=== PATIENT | female | born 1955 | race Caucasian/White ===

== ENCOUNTER 2021-07-23 11:32 | Emergency (ER) | payer MEDICARE, OTHER ==
[~2021-07-23] VITALS: Ht 162.6 cm; Wt 77.3 kg
[2021-07-23 15:30] LABS: BASOPHILS # (AUTO) 0.1 X10'3 (0-0.2); BASOPHILS % (AUTO) 1.5 % (0-1); EOSINOPHILS # (AUTO) 0.3 X10'3 (0-0.9); EOSINOPHILS % (AUTO) 4.2 % (0-6); HEMATOCRIT 42.3 % (35.0-45.0); HEMOGLOBIN 14.3 g/dl (12.0-16.0); LYMPHOCYTES # (AUTO) 1.9 X10'3 (1.1-4.8); LYMPHOCYTES % (AUTO) 31.7 % (21-51); MEAN CORPUSCULAR HEMOGLOBIN 30.9 PG (27.0-31.0); MEAN CORPUSCULAR HGB CONC 33.9 g/dL (33.0-36.5); MEAN CORPUSCULAR VOLUME 91.3 FL (78-98); MEAN PLATELET VOLUME 7.5 FL (7.4-10.4); MONOCYTES # (AUTO) 0.7 X10'3 (0-0.9); MONOCYTES % (AUTO) 11.9 % (2-12); NEUTROPHILS # (AUTO) 3.1 X10'3 (1.8-7.7); NEUTROPHILS % (AUTO) 50.7 % (42-75); PLATELET COUNT 320 X10'3 (140-440); RED BLOOD COUNT 4.63 X10'6 (4.20-5.60); RED CELL DISTRIBUTION WIDTH 12.9 % (11.5-14.5)
[2021-07-23 15:43] LABS: ALANINE AMINOTRANSFERASE 42 U/L (12-78); ALBUMIN 3.6 G/DL (3.4-5.0); ALKALINE PHOSPHATASE 43 IU/L (46-116); ANION GAP 10 (8-16); ASPARTATE AMINO TRANSFERASE 24 U/L (10-37); BILIRUBIN,TOTAL 0.4 MG/DL (0.1-1.0); BLOOD UREA NITROGEN 22 MG/DL (7-18); BUN/CREATININE RATIO 23.4 (6.6-38.0); CALCIUM 8.9 MG/DL (8.5-10.1); CHLORIDE 107 MMOL/L (99-107); CREATININE 0.94 MG/DL (0.40-0.90); GLUCOSE 89 MG/DL (70-104); POTASSIUM 3.3 MMOL/L (3.5-5.1); SODIUM 145 MMOL/L (135-145); TOTAL PROTEIN 7.3 G/DL (6.4-8.2); eGFR 59 ML/MIN
[2021-07-23] MEDS ORDERED: iohexol 350MG/ML 100ml bottle IV ONE (15:46)
[2021-07-23 17:50] LABS: PARTIAL THROMBOPLASTIN TIME 27 SECONDS (22-32)
[2021-07-23] MEDS ORDERED: enoxaparin 100mg/ml syringe SUBCUT ONE (17:50)
[2021-07-23] MEDS ORDERED: enoxaparin 80mg/0.8ml syringe SUBCUT ONE (17:55)
[2021-07-23] MEDS ORDERED: APIX5TAB3 PO ×2 (18:04)
[2021-07-23 18:07] VITALS: BP 135/67
== END 2021-07-23 18:17 | disposition home or self-care (01) ==
LOC: ER 11:33
DX: I82.442 Acute embolism and thrombosis of left tibial vein (principal); F17.200 Nicotine dependence, unspecified, uncomplicated; Z88.2 Allergy status to sulfonamides; Z79.899 Other long term (current) drug therapy
CPT/HCPCS: 36415; 71275; 80053; 85025; 85610; 85730; 93971; 96372; 99285; Q9967; J1650

== ENCOUNTER 2022-07-03 15:35 | Emergency (ER) | payer MEDICARE, OTHER ==
[~2022-07-03] VITALS: Ht 162.6 cm; Wt 78.2 kg
[~2022-07-03 15:35] MED LIST: APIX5TAB3 PO
[2022-07-03 18:16] LABS: APTT 47 SECONDS (22-32)
[2022-07-03 18:19] LABS: ALANINE AMINOTRANSFERASE 32 U/L (12-78); ALBUMIN 3.6 G/DL (3.4-5.0); ALBUMIN/GLOBULIN RATIO 1.1 (1.1-1.5); ALKALINE PHOSPHATASE 35 IU/L (46-116); ANION GAP 10 (8-16); ASPARTATE AMINO TRANSFERASE 25 U/L (10-37); BILIRUBIN,TOTAL 0.2 MG/DL (0.1-1.0); BLOOD UREA NITROGEN 27 MG/DL (7-18); BUN/CREATININE RATIO 27.8 (6.6-38.0); CALCIUM 8.7 MG/DL (8.5-10.1); CHLORIDE 103 MMOL/L (99-107); CREATININE 0.97 MG/DL (0.40-0.90); GLUCOSE 91 MG/DL (70-104); POTASSIUM 3.5 MMOL/L (3.5-5.1); SODIUM 139 MMOL/L (135-145); TOTAL CARBON DIOXIDE 26.3 MMOL/L (24-32); eGFR 57 ML/MIN
[2022-07-03 18:25] LABS: BASOPHILS # (AUTO) 0.1 X10'3 (0-0.2); BASOPHILS % (AUTO) 1.3 % (0-1); EOSINOPHILS # (AUTO) 0.2 X10'3 (0-0.9); EOSINOPHILS % (AUTO) 2.5 % (0-6); HEMATOCRIT 40.9 % (35.0-45.0); HEMOGLOBIN 13.7 g/dl (12.0-16.0); LYMPHOCYTES # (AUTO) 2.2 X10'3 (1.1-4.8); LYMPHOCYTES % (AUTO) 32.7 % (21-51); MEAN CORPUSCULAR HEMOGLOBIN 30.2 PG (27.0-31.0); MEAN CORPUSCULAR HGB CONC 33.6 g/dL (33.0-36.5); MEAN CORPUSCULAR VOLUME 89.9 FL (78-98); MEAN PLATELET VOLUME 7.6 FL (7.4-10.4); MONOCYTES # (AUTO) 0.7 X10'3 (0-0.9); MONOCYTES % (AUTO) 10.3 % (2-12); NEUTROPHILS # (AUTO) 3.5 X10'3 (1.8-7.7); NEUTROPHILS % (AUTO) 53.2 % (42-75); PLATELET COUNT 326 X10'3 (140-440); RED BLOOD COUNT 4.55 X10'6 (4.20-5.60); RED CELL DISTRIBUTION WIDTH 13.8 % (11.5-14.5); WHITE BLOOD COUNT 6.7 X10'3 (4.5-11.0)
[2022-07-03 19:41] VITALS: BP 128/78
== END 2022-07-03 19:42 | disposition home or self-care (01) ==
LOC: ER 15:36
DX: I82.402 Acute embolism and thrombosis of unspecified deep veins of left lower extremity (principal); Z88.2 Allergy status to sulfonamides
CPT/HCPCS: 36415; 80053; 85025; 85610; 85730; 93971; 99284

== ENCOUNTER 2022-10-05 08:12 | Day surgery (SDC) | payer MEDICARE, OTHER ==
[2022-09-28 10:00] LABS: BASOPHILS # (AUTO) 0.1 X10'3 (0-0.2); BASOPHILS % (AUTO) 1.2 % (0-1); EOSINOPHILS # (AUTO) 0.2 X10'3 (0-0.9); EOSINOPHILS % (AUTO) 2.7 % (0-6); HEMATOCRIT 43.2 % (35.0-45.0); HEMOGLOBIN 14.7 g/dl (12.0-16.0); LYMPHOCYTES # (AUTO) 2.3 X10'3 (1.1-4.8); LYMPHOCYTES % (AUTO) 33.6 % (21-51); MEAN CORPUSCULAR HEMOGLOBIN 30.9 PG (27.0-31.0); MEAN CORPUSCULAR HGB CONC 33.9 g/dL (33.0-36.5); MEAN CORPUSCULAR VOLUME 91.1 FL (78-98); MEAN PLATELET VOLUME 7.2 FL (7.4-10.4); MONOCYTES # (AUTO) 0.8 X10'3 (0-0.9); MONOCYTES % (AUTO) 11.1 % (2-12); NEUTROPHILS # (AUTO) 3.5 X10'3 (1.8-7.7); NEUTROPHILS % (AUTO) 51.4 % (42-75); PLATELET COUNT 359 X10'3 (140-440); RED BLOOD COUNT 4.75 X10'6 (4.20-5.60); RED CELL DISTRIBUTION WIDTH 14.6 % (11.5-14.5); WHITE BLOOD COUNT 6.8 X10'3 (4.5-11.0)
[2022-09-28 10:11] LABS: APTT 48 SECONDS (22-32)
[2022-09-28 10:21] LABS: ALANINE AMINOTRANSFERASE 41 U/L (12-78); ALBUMIN 3.8 G/DL (3.4-5.0); ALKALINE PHOSPHATASE 43 IU/L (46-116); ANION GAP 8 (8-16); ASPARTATE AMINO TRANSFERASE 33 U/L (10-37); BILIRUBIN,TOTAL 0.3 MG/DL (0.1-1.0); BLOOD UREA NITROGEN 19 MG/DL (7-18); BUN/CREATININE RATIO 21.8 (6.6-38.0); CALCIUM 9.1 MG/DL (8.5-10.1); CHLORIDE 103 MMOL/L (99-107); CREATININE 0.87 MG/DL (0.40-0.90); GLUCOSE 96 MG/DL (70-104); POTASSIUM 3.7 MMOL/L (3.5-5.1); SODIUM 141 MMOL/L (135-145); TOTAL CARBON DIOXIDE 30.3 MMOL/L (24-32); TOTAL PROTEIN 7.6 G/DL (6.4-8.2); eGFR 65 ML/MIN
[2022-10-05] VITALS (12 sets, daily range): BP systolic 104–146; BP diastolic 58–87
[~2022-10-05] VITALS: Ht 163.8 cm; Wt 80.1 kg
[2022-10-05] MEDS ORDERED: DULO60CA65 PO (08:42)
[2022-10-05] MEDS ORDERED: LOSA1TAB36 PO (08:42)
[2022-10-05] MEDS ORDERED: LEVO88TA7 PO (08:42)
[2022-10-05] MEDS ORDERED: FENO134C21 PO (08:42)
[2022-10-05] MEDS ORDERED: SIMV-42 PO (08:42)
[2022-10-05] MEDS ORDERED: BUPR-317 PO (08:42)
[2022-10-05] MEDS ORDERED: WARF-55 PO (08:42)
[2022-10-05] MEDS ORDERED: CLON0.5T4 PO (08:42)
[2022-10-05] MEDS ORDERED: ESZO3TAB44 PO (08:42)
[2022-10-05] MEDS ORDERED: ESTR0.5T28 PO (08:42)
[2022-10-05] MEDS ORDERED: diphenhydrAMINE 25mg capsule PO PRN (08:50)
[2022-10-05] MEDS ORDERED: LORazepam 0.5 MG tablet PO PRN (08:50)
[2022-10-05] MEDS ORDERED: methylPREDNISolone sod succ 125mg/2ml vial IV ONE (08:50)
[2022-10-05] MEDS ORDERED: normal saline 1,000 ML IV SCH (08:50)
[2022-10-05] MEDS ORDERED: midazolam 1 mg/ML 2ml injection ONE ×2 (09:43→10:43)
[2022-10-05] MEDS ORDERED: fentaNYL/PF 50MCG/1 ML 2ML syringe ONE (09:43)
[2022-10-05] MEDS ORDERED: LIDOcaine 1% 30ml preserv. free vial ONE (09:43)
[2022-10-05] MEDS ORDERED: iohexol 350MG/ML 100ml bottle IV ONE (09:43)
[2022-10-05] MEDS ORDERED: iohexol 350 MG/ML 50ML vial IV ONE (10:25)
[2022-10-05] MEDS ORDERED: ondansetron/PF 4mg/2ml inj IV PRN (11:35)
[2022-10-05] MEDS ORDERED: normal saline 1000ml 1,000 ML IV SCH (11:35)
[2022-10-05] MEDS ORDERED: OXAZEpam 15mg capsule PO PRN (11:50)
[2022-10-05] MEDS ORDERED: HYDROcodone/acetaminophen 10/325mg tab PO PRN (11:50)
[2022-10-05] MEDS ORDERED: HYDROcodone/acetaminophen 5mg/325mg tablet PO PRN (11:50)
[2022-10-05] MEDS ORDERED: proCHLORperazine 10 MG/2 ml inj IV PRN (11:50)
[2022-10-05] MEDS ORDERED: nitroGLYCERIN 0.4mg SUBLingual tab SL PRN (11:50)
--- NOTE | 2022-10-05 11:50 | NUR ---
Hair called to update on Pt condition. Will be up to see her soon
== END 2022-10-05 18:00 | disposition home or self-care (01) ==
LOC: SSTAY O 08:12
PROVIDERS: ATTEND Internal Medicine Cardiovascular Disease
DX: I25.10 Atherosclerotic heart disease of native coronary artery without angina pectoris (principal); I10 Essential (primary) hypertension; E78.5 Hyperlipidemia, unspecified; F32.A Depression, unspecified; I44.0 Atrioventricular block, first degree; Z96.652 Presence of left artificial knee joint; Z88.2 Allergy status to sulfonamides; Z88.6 Allergy status to analgesic agent; Z79.899 Other long term (current) drug therapy; Z79.01 Long term (current) use of anticoagulants
CPT/HCPCS: 36415; 71046; 80053; 85025; 85610; 85730; 93005; 93458; 99152; 99153; C1751; C1760; C1769; J1644; J2250; J2930; J3010; J3490; J7030; Q0163; Q9967; A4615; A4620; A6258

== ENCOUNTER 2023-01-17 05:53 | Inpatient (IN) | payer MEDICARE, OTHER ==
[2023-01-10 14:48] LABS: BASOPHILS % (AUTO) 0.4 % (0-1); EOSINOPHILS # (AUTO) 0.2 X10'3 (0-0.9); EOSINOPHILS % (AUTO) 3.4 % (0-6); LYMPHOCYTES # (AUTO) 1.7 X10'3 (1.1-4.8); LYMPHOCYTES % (AUTO) 25.7 % (21-51); MEAN CORPUSCULAR HEMOGLOBIN 30.9 PG (27.0-31.0); MEAN PLATELET VOLUME 6.8 FL (7.4-10.4); MONOCYTES # (AUTO) 0.7 X10'3 (0-0.9); MONOCYTES % (AUTO) 10.4 % (2-12); NEUTROPHILS # (AUTO) 3.9 X10'3 (1.8-7.7); NEUTROPHILS % (AUTO) 60.1 % (42-75); PRE OP HEMATOCRIT 42.1 % (35.0-45.0); PRE OP HEMOGLOBIN 14.3 g/dL (12.0-16.0); PRE OP PLATELET COUNT 388 X10'3 (140-440); RED BLOOD COUNT 4.63 X10'6 (4.20-5.60); RED CELL DISTRIBUTION WIDTH 13.3 % (11.5-14.5)
[2023-01-10 15:00] LABS: ALBUMIN 3.6 G/DL (3.4-5.0); ALKALINE PHOSPHATASE 44 IU/L (46-116); BLOOD UREA NITROGEN 19 MG/DL (7-18); BUN/CREATININE RATIO 22.4 (6.6-38.0); CALCIUM 9.5 MG/DL (8.5-10.1); CHLORIDE 107 MMOL/L (99-107); CREATININE 0.85 MG/DL (0.40-0.90); PRE OP ALT 37 U/L (30-65); PRE OP ANION GAP 5 (8-16); PRE OP AST 27 U/L (10-37); PRE OP BILIRUB, TOTAL 0.2 MG/DL (0.0-1.0); PRE OP GLUCOSE 96 MG/DL (70-104); PRE OP POTASSIUM 3.5 MMOL/L (3.4-5.1); PRE OP SODIUM 142 MMOL/L (135-145); TOTAL CARBON DIOXIDE 30.4 MMOL/L (24-32); TOTAL PROTEIN 7.3 G/DL (6.4-8.2); eGFR 66 ML/MIN
[2023-01-17] VITALS (19 sets, daily range): BP systolic 93–133; BP diastolic 47–89
[~2023-01-17] VITALS: Ht 163.8 cm; Wt 77.1 kg
[~2023-01-17 05:53] MED LIST changes: -APIX5TAB3 PO; +BUPR-353 PO; +CLON0.5T4 PO; +DULO60CA65 PO; +ESZO3TAB44 PO; +FENO134C21 PO; +LEVO88TA7 PO; +LOSA1TAB36 PO; +SIMV-42 PO; +WARF-55 PO; +acetaminophen 325mg tablet PO ONE; +ceFAZolin inj. 2,000 MG in dextrose 5%-water 100 ML IV ONE; +celeCOXIB 100mg capsule PO ONE; +famotidine 20mg tablet PO ONE; +gabapentin 300mg capsule PO ONE; +metoclopramide 5 mg/ml inj IV ONE; +oxyCODONE SR 10mg (sust. release) tab -2 tabs (20mg) PO ONE; +tranexamic acid inj. 1,000 MG in normal saline IV soln 100ML IV ONE; +vancomycin 1,500 MG in NS 300ml IV soln IV ONE
[2023-01-17] MEDS ORDERED: clonazePAM 0.5mg tablet PO PRN (06:45)
[2023-01-17] MEDS ORDERED: ondansetron/PF 4mg/2ml inj IV PRN ×2 (06:50→10:00)
[2023-01-17] MEDS ORDERED: acetaminophen 325mg tablet PO PRN (06:50)
[2023-01-17] MEDS ORDERED: naloxone 0.4 mg/ml inj IV PRN (06:50)
[2023-01-17] MEDS ORDERED: HYDROmorphone 1 mg/ml syringe IV PRN (06:50)
[2023-01-17] MEDS ORDERED: HYDROmorphone inj. 0.5 MG/0.5 ML DISP.SYRIN IV PRN (06:50)
[2023-01-17] MEDS ORDERED: diphenhydrAMINE 25mg capsule PO PRN ×2 (06:50)
[2023-01-17] MEDS ORDERED: bisacodyl 10mg suppository rectal RC PRN (06:50)
[2023-01-17] MEDS: potassium cl 20mEq in 1/2 NS 1,000 ML IV SCH ×3 (06:50→22:50)
[2023-01-17] MEDS ORDERED: magnesium hydroxide 30ml (MOM) UD suspension PO PRN (06:50)
[2023-01-17] MEDS: ringers solution, lacted 1,000 ML IV SCH ×2 (06:59→14:07)
--- NOTE | 2023-01-17 07:12 | NUR ---
PULSES MARKED, CSM INTACT, VIDEO WATCHED, OINTMENT NOT ORDERED
[2023-01-17] MEDS ORDERED: non-formulary drug (Losartan/Hydrochlorothiazide (Losartan-Hctz 50-12.5 Mg Tab) 1 TAB) PO SCH (08:00)
[2023-01-17] MEDS ORDERED: ROPIVAcaine inj 250 MG, CloNIDine/PF inj 80 MCG, epiNEPHrine inj 0.5 MG in normal salin... IV STA (08:03)
[2023-01-17] MEDS ORDERED: vancomycin 1,000mg inj ONE (08:46)
[2023-01-17] MEDS ORDERED: MIDAZolam 1mg/ml 10ml vial ONE (09:15)
[2023-01-17] MEDS ORDERED: fentaNYL/PF 50MCG/1 ML 2ML syringe ONE (09:16)
[2023-01-17] MEDS ORDERED: ROPIVAcaine 0.5% (5mg/ml) 30ml vial ONE (09:53)
[2023-01-17] MEDS ORDERED: hydrALAZINE 20mg/ml inj. IV PRN (10:00)
[2023-01-17] MEDS ORDERED: ringers solution, lacted 1,000 ML IV SCH (10:00)
[2023-01-17] MEDS ORDERED: ROPIVAcaine 0.2% (10 MG/5 ML) BOLUS INJECTION ADDCANAL PRN (10:00)
[2023-01-17] MEDS ORDERED: labetalol 20mg/4ml (5mg/ml) syringe IV PRN (10:00)
[2023-01-17] MEDS ORDERED: morphine 4 MG/ML inj SYRINge IV PRN (10:00)
[2023-01-17] MEDS ORDERED: morphine 2 MG/ML inj. syringe IV PRN (10:00)
[2023-01-17] MEDS ORDERED: fentaNYL/PF 50MCG/1 ML 2ML syringe IV PRN ×2 (10:00)
[2023-01-17] MEDS ORDERED: ePHEDrine 50MG/ML INJ. ONE (10:11)
--- NOTE | 2023-01-17 11:00 | NUR ---
Received from OR via , accompanied by Anesthesiologist EIL AND OR NURSE and report given by Anesthesiolgist. PT IS AWAKE AND ALERT UPON ARRIVAL TO PACU AND DENIES PAIN OR DISCOMFORT. O2 WITHIN NORMAL LIMITS ON ROOM AIR. VSS. LT TOTAL KNEE WITH NI DRESSING AND ONQ CATH WITH PWDR PACK SLING; CDI. Addendum: 01/17/23 at 1141 by Andreina Kramer RN Amended: Links added.
[2023-01-17] MEDS ORDERED: meperidine/PF 25mg/ml syringe IV PRN (11:20)
[2023-01-17] MEDS: ROPIVAcaine 0.2%/PF PUMP/bolus 545 ML ADDCANAL SCH (11:39)
--- NOTE | 2023-01-17 12:30 | NUR ---
PRESENT AND 2 RAILS DOWN. RN AWARE THAT PATIENT HAS ARRIVED. TO ACCEPT CARE OF REPORT GIVEN AND ALL QUESTIONS ANSWERED. PATIENT TRANSFERRED TO SURG. LABELED BELONGINGS PRESENT AND DELIVERED TO ROOM. RN PRESENT ALL CRITERIA FOR TRANSFER BACK TO THE FLOOR HAS BEEN ACHIEVED. VSS. PAIN AT A TOLERABLE LEVEL. BED LOW, CALL LIGHT PATIENT. Addendum: 01/17/23 at 1333 by Andreina Kramer RN Amended: Links added.
--- NOTE | 2023-01-17 12:30 | NUR ---
Patient in room [facility]. I have received report from Suad, property underwriter and had the opportunity to ask questions and assume patient care.
[2023-01-17] MEDS ORDERED: tranexamic acid inj. 1,000 MG in normal saline 100ml IV soln 90 ML IV ONE (13:00)
[2023-01-17] MEDS: gabapentin 300mg capsule PO SCH ×2 (14:13→20:29)
[2023-01-17] MEDS: HYDROcodone/acetaminophen 10/325mg tab PO PRN ×2 (16:47→23:52)
--- NOTE | 2023-01-17 18:17 | NUR ---
Problems reprioritized. Patient report given, questions answered & plan of care reviewed with ODILIA Tanner and ODILIA Prado.
[2023-01-17] MEDS ORDERED: vancomycin/NS 1 GM ADD-VANTAGE 250 ML IV SCH (20:00)
[2023-01-17] MEDS: buPROPion SR 150mg tablet PO SCH (20:00)
[2023-01-17] MEDS: fenofibrate 145mg tablet PO SCH (20:28)
[2023-01-17] MEDS: atorvastatin 10mg tablet PO SCH (20:29)
[2023-01-17] MEDS: sennosides 8.6mg tablet PO SCH (20:29)
[2023-01-17] MEDS: warfarin 7.5mg tablet PO SCH (20:30)
[2023-01-17] MEDS: zolpidem 5mg tablet PO SCH (20:36)
[2023-01-18 02:00] VITALS: BP 105/51
[2023-01-18] MEDS: HYDROcodone/acetaminophen 10/325mg tab PO PRN ×4 (04:52→18:06)
[2023-01-18] MEDS: potassium cl 20mEq in 1/2 NS 1,000 ML IV SCH ×3 (04:54→22:50)
[2023-01-18 06:00] VITALS: BP 131/62
[2023-01-18 06:50] LABS: BASOPHILS # (AUTO) 0.1 X10'3 (0-0.2); BASOPHILS % (AUTO) 0.5 % (0-1); EOSINOPHILS # (AUTO) 0.2 X10'3 (0-0.9); EOSINOPHILS % (AUTO) 1.5 % (0-6); HEMATOCRIT 36.1 % (35.0-45.0); HEMOGLOBIN 12.1 g/dl (12.0-16.0); LYMPHOCYTES # (AUTO) 0.7 X10'3 (1.1-4.8); LYMPHOCYTES % (AUTO) 6.8 % (21-51); MEAN CORPUSCULAR HGB CONC 33.6 g/dL (33.0-36.5); MEAN CORPUSCULAR VOLUME 92.3 FL (78-98); MEAN PLATELET VOLUME 7.7 FL (7.4-10.4); NEUTROPHILS # (AUTO) 8.4 X10'3 (1.8-7.7); NEUTROPHILS % (AUTO) 81.2 % (42-75); PLATELET COUNT 251 X10'3 (140-440); RED CELL DISTRIBUTION WIDTH 13.2 % (11.5-14.5); WHITE BLOOD COUNT 10.4 X10'3 (4.5-11.0)
[2023-01-18 06:57] LABS: ANION GAP 8 (8-16); CHLORIDE 104 MMOL/L (99-107); POTASSIUM 3.8 MMOL/L (3.5-5.1); SODIUM 139 MMOL/L (135-145); TOTAL CARBON DIOXIDE 27.5 MMOL/L (24-32)
--- NOTE | 2023-01-18 07:06 | NUR ---
Patient in room [facility]. I have received report from Flores and Eve HARTLEY and had the opportunity to ask questions and assume patient care.
[2023-01-18] MEDS: HYDROchlorothiazide 12.5mg capsule PO SCH (09:44)
[2023-01-18] MEDS: gabapentin 300mg capsule PO SCH ×3 (09:44→20:23)
[2023-01-18] MEDS: multivitamins, therapeutics tablet PO SCH (09:44)
[2023-01-18] MEDS: duloxetine 30mg CAPSULE.DR PO SCH (09:45)
[2023-01-18] MEDS: losartan 50mg tablet PO SCH (09:45)
[2023-01-18] MEDS: levoTHYROXINE 88mcg tablet PO SCH (09:46)
[2023-01-18] MEDS: ascorbic acid 500mg tablet PO SCH ×2 (09:46→20:25)
[2023-01-18] MEDS: buPROPion SR 150mg tablet PO SCH ×2 (09:46→20:21)
[2023-01-18 10:00] VITALS: BP 138/69
--- NOTE | 2023-01-18 11:57 | NUR ---
Joint surgery consult: Pt s/p L knee surgery this admit per EMR. Pt seen by PAT for written/verbal high protein diet ed w/ RD contact information provided. PAT encouraged pt to contact dietitian's office if further nutrition questions/concerns. Addendum: 01/18/23 at [address] Amended: Links added.
--- NOTE | 2023-01-18 12:15 | NUR ---
Erin HARTLEY texted Dr Ying Parra per PT patient needs to stay another day. Addendum: 01/18/23 at 1234 by Stacey Leyva RN Per Dr Parra Thank You
[2023-01-18 18:00] VITALS: BP 137/68
--- NOTE | 2023-01-18 18:30 | NUR ---
Patient in room [facility]. I have received report from Stacey HARTLEY and had the opportunity to ask questions and assume patient care.
--- NOTE | 2023-01-18 18:53 | NUR ---
Problems reprioritized. Patient report given, questions answered & plan of care reviewed with Martha OLIVEIRA.
[2023-01-18] MEDS: celeCOXIB 100mg capsule PO SCH (20:21)
[2023-01-18] MEDS: zolpidem 5mg tablet PO SCH (20:21)
[2023-01-18] MEDS: warfarin 7.5mg tablet PO SCH (20:22)
[2023-01-18] MEDS: atorvastatin 10mg tablet PO SCH (20:22)
[2023-01-18] MEDS: sennosides 8.6mg tablet PO SCH (20:23)
[2023-01-18] MEDS: fenofibrate 145mg tablet PO SCH (20:23)
[2023-01-18 22:00] VITALS: BP 152/88
[2023-01-19] MEDS: HYDROcodone/acetaminophen 10/325mg tab PO PRN ×3 (01:52→11:10)
--- NOTE | 2023-01-19 04:57 | NUR ---
Problems reprioritized. Patient report given, questions answered & plan of care reviewed with Stacey HARTLEY.
[2023-01-19 06:12] LABS: BASOPHILS % (AUTO) 0.5 % (0-1); EOSINOPHILS # (AUTO) 0.1 X10'3 (0-0.9); EOSINOPHILS % (AUTO) 1.5 % (0-6); HEMATOCRIT 34.7 % (35.0-45.0); HEMOGLOBIN 11.8 g/dl (12.0-16.0); LYMPHOCYTES # (AUTO) 1.1 X10'3 (1.1-4.8); LYMPHOCYTES % (AUTO) 12.2 % (21-51); MEAN CORPUSCULAR HEMOGLOBIN 31.3 PG (27.0-31.0); MEAN PLATELET VOLUME 7.3 FL (7.4-10.4); MONOCYTES % (AUTO) 11.5 % (2-12); NEUTROPHILS # (AUTO) 6.7 X10'3 (1.8-7.7); NEUTROPHILS % (AUTO) 74.3 % (42-75); PLATELET COUNT 236 X10'3 (140-440); RED BLOOD COUNT 3.78 X10'6 (4.20-5.60); RED CELL DISTRIBUTION WIDTH 13.5 % (11.5-14.5)
[2023-01-19 07:00] VITALS: BP 119/64
[2023-01-19] MEDS: HYDROchlorothiazide 12.5mg capsule PO SCH (07:32)
[2023-01-19] MEDS: multivitamins, therapeutics tablet PO SCH (07:32)
[2023-01-19] MEDS: levoTHYROXINE 88mcg tablet PO SCH (07:32)
[2023-01-19] MEDS: duloxetine 30mg CAPSULE.DR PO SCH (07:32)
[2023-01-19] MEDS: ascorbic acid 500mg tablet PO SCH (07:32)
[2023-01-19] MEDS: buPROPion SR 150mg tablet PO SCH (07:32)
[2023-01-19] MEDS: celeCOXIB 100mg capsule PO SCH (07:32)
[2023-01-19] MEDS: gabapentin 300mg capsule PO SCH ×2 (07:32→13:06)
[2023-01-19] MEDS: losartan 50mg tablet PO SCH (07:32)
[2023-01-19 10:00] VITALS: BP 124/64
--- NOTE | 2023-01-19 12:16 | NUR ---
Dr Parra aware patient is taking [place] 10/325 x2 Q4H for pain. Patient is concerned that she only has Tramadol at home. per Dr Cantu he does not want to make any changes to pain medication she has Gabapentin and Celebrex plus tramadol at home.
[2023-01-19] MEDS: ROPIVAcaine 0.2%/PF PUMP/bolus 545 ML ADDCANAL SCH (13:07)
--- NOTE | 2023-01-19 15:35 | NUR ---
Patient discharge instructions reviewed with patient and patient verbalized understanding. Patients IV dc'd cannula intact by reconnaissance crewmember Steve. Patient states she has all her belongings including cell phone. Patient was taken via wheelchair to husbands vehicle. Patient was sent home with her 2 powder pack ice packs.
[2023-01-21] MEDS ORDERED: warfarin 5mg tablet PO SCH (21:00)
== END 2023-01-19 15:13 | disposition home or self-care (01) | DRG 470 ==
LOC: PAS 05:53 → SUR 3N 06:48
PROVIDERS: ADMIT Orthopaedic Surgery; ATTEND Orthopaedic Surgery
PROC: 3E0T3BZ Introduction of Anesthetic Agent into Peripheral Nerves and Plexi, Percutaneous Approach (ICD-10-PCS; 2023-01-17)
PROC: 3E0T33Z Introduction of Anti-inflammatory into Peripheral Nerves and Plexi, Percutaneous Approach (ICD-10-PCS; 2023-01-17)
PROC: 0SRD0J9 Replacement of Left Knee Joint with Synthetic Substitute, Cemented, Open Approach (ICD-10-PCS; principal; 2023-01-17 09:11)
DX: M17.12 Unilateral primary osteoarthritis, left knee (principal); Z79.01 Long term (current) use of anticoagulants; Z79.899 Other long term (current) drug therapy
CPT/HCPCS: 36415; 73560; 80051; 80053; 82948; 85025; 85610; 86885; 86900; 86901; 87081; 97110; 97116; 97161; 97530; A4215; A4615; A6258; A6449; A7000; C1713; C1776; G0378; J0690; J1170; J2175; J2250; J2765; J2795; J3010; J3370; J3480; J3490; J7040; J7060; J7120

== ENCOUNTER 2023-02-13 14:27 | Emergency (ER) | payer MEDICARE, OTHER ==
[~2023-02-13] VITALS: Ht 163.8 cm; Wt 74.1 kg
[~2023-02-13 14:27] MED LIST changes: -acetaminophen 325mg tablet PO ONE; -ceFAZolin inj. 2,000 MG in dextrose 5%-water 100 ML IV ONE; -celeCOXIB 100mg capsule PO ONE; -famotidine 20mg tablet PO ONE; -gabapentin 300mg capsule PO ONE; -metoclopramide 5 mg/ml inj IV ONE; -oxyCODONE SR 10mg (sust. release) tab -2 tabs (20mg) PO ONE; -tranexamic acid inj. 1,000 MG in normal saline IV soln 100ML IV ONE; -vancomycin 1,500 MG in NS 300ml IV soln IV ONE
[2023-02-13 15:04] VITALS: BP 141/71
[2023-02-13 16:08] LABS: BASOPHILS # (AUTO) 0.1 X10'3 (0-0.2); EOSINOPHILS # (AUTO) 0.2 X10'3 (0-0.9); EOSINOPHILS % (AUTO) 2.2 % (0-6); HEMATOCRIT 40.3 % (35.0-45.0); HEMOGLOBIN 13.4 g/dl (12.0-16.0); LYMPHOCYTES # (AUTO) 1.8 X10'3 (1.1-4.8); LYMPHOCYTES % (AUTO) 22.7 % (21-51); MEAN CORPUSCULAR HEMOGLOBIN 30.3 PG (27.0-31.0); MEAN CORPUSCULAR HGB CONC 33.3 g/dL (33.0-36.5); MEAN CORPUSCULAR VOLUME 90.9 FL (78-98); MEAN PLATELET VOLUME 6.6 FL (7.4-10.4); MONOCYTES # (AUTO) 0.7 X10'3 (0-0.9); MONOCYTES % (AUTO) 8.5 % (2-12); NEUTROPHILS # (AUTO) 5.2 X10'3 (1.8-7.7); NEUTROPHILS % (AUTO) 65.6 % (42-75); PLATELET COUNT 362 X10'3 (140-440); RED BLOOD COUNT 4.43 X10'6 (4.20-5.60); RED CELL DISTRIBUTION WIDTH 13.9 % (11.5-14.5)
[2023-02-13 16:21] LABS: ALANINE AMINOTRANSFERASE 23 U/L (12-78); ALBUMIN 3.6 G/DL (3.4-5.0); ALBUMIN/GLOBULIN RATIO 0.9 (1.1-1.5); ALKALINE PHOSPHATASE 51 IU/L (46-116); ANION GAP 8 (8-16); ASPARTATE AMINO TRANSFERASE 27 U/L (10-37); BILIRUBIN,TOTAL 0.4 MG/DL (0.1-1.0); BLOOD UREA NITROGEN 17 MG/DL (7-18); BUN/CREATININE RATIO 20.2 (10.0-20.0); CALCIUM 9.3 MG/DL (8.5-10.1); CHLORIDE 103 MMOL/L (99-107); CREATININE 0.84 MG/DL (0.40-0.90); GLUCOSE 90 MG/DL (70-104); POTASSIUM 3.5 MMOL/L (3.5-5.1); SODIUM 140 MMOL/L (135-145); TOTAL CARBON DIOXIDE 29.4 MMOL/L (24-32); TOTAL PROTEIN 7.7 G/DL (6.4-8.2); eGFR 67 ML/MIN
== END 2023-02-13 18:19 | disposition home or self-care (01) ==
LOC: ER 14:27
DX: M25.562 Pain in left knee (principal); Z88.2 Allergy status to sulfonamides; Z79.899 Other long term (current) drug therapy
CPT/HCPCS: 36415; 80053; 85025; 93971; 99284